=== PATIENT | male | born 1980 | race Asian ===

== ENCOUNTER 2018-06-19 21:50 | Emergency (ER) | payer SELFPAY ==
[~2018-06-19] VITALS: Ht 175.3 cm; Wt 72.6 kg
[2018-06-19 21:55] VITALS: Ht 175.3 cm; Wt 72.6 kg
[2018-06-19] MEDS ORDERED: ASPIR 8181 MG PO (22:33)
[2018-06-19] MEDS ORDERED: FUROSEMIDE20 MG (22:33)
[2018-06-19] MEDS ORDERED: LANTUS SOLOS100 U/M1 (22:34)
[2018-06-19 22:47] LABS: BASOPHIL % 0.4 % (0-2); PLATELET COUNT 224 x10^3mcL (130-400)
[2018-06-19 22:54] LABS: CARBON DIOXIDE 20.1 mmol/L (21-32); CHLORIDE SERUM 102 mmol/L (98-107); CREATININE SERUM 1.6 mg/dL (0.7-1.3); GFR1 51 mL/min; GLUCOSE SERUM 268 mg/dL (74-106); POTASSIUM SERUM 3.9 mmol/L (3.5-5.1); SODIUM SERUM 133 mmol/L (136-145)
[2018-06-19 22:58] LABS: RED CELL DISTRIBUTION WIDTH 15.6 % (11.5-14.5); UA SPECIFIC GRAVITY >=1.030 (1.005-1.035); microscopic required? YES; urine erythrocyte 3+ (NEGATIVE)
[2018-06-19 22:59] LABS: ALKALINE PHOSPHATASE 92 U/L (46-116); ALT/SGPT 35 U/L (16-63); AST/SGOT 29 U/L (15-37); BILIRUBIN TOTAL 0.46 mg/dL (0.20-1.00); TOTAL PROTEIN, SERUM 6.4 g/dL (6.4-8.2)
[2018-06-19 23:00] LABS: ALBUMIN 2.2 g/dL (3.4-5.0)
[2018-06-19 23:06] LABS: AMPHETAMINE QUAL UR NONE DETECTED (See below)
[2018-06-19 23:17] LABS: CK-MB 2.8 ng/mL (0-3.6)
[2018-06-19 23:19] VITALS: BP 148/95
== END 2018-06-19 23:19 | disposition short-term general hospital (02) ==
LOC: ED 21:50
PROVIDERS: Emergency Medicine
DX: S80.212A Abrasion, left knee, initial encounter (principal); S00.81XA Abrasion of other part of head, initial encounter; G45.9 Transient cerebral ischemic attack, unspecified; R55 Syncope and collapse; I50.9 Heart failure, unspecified; E11.9 Type 2 diabetes mellitus without complications; X58.XXXA Exposure to other specified factors, initial encounter; Y93.89 Activity, other specified; Y92.89 Other specified places as the place of occurrence of the external cause; Y99.8 Other external cause status
CPT/HCPCS: 36415; 36600; 82962; 83880; G0480